=== PATIENT | female | born 1990 | race Two or more races ===

== ENCOUNTER 2025-03-07 14:15 | Emergency (ER) | payer OTHER ==
[~2025-03-07] VITALS: Ht 162.6 cm; Wt 70.8 kg
[2025-03-07 14:34] VITALS: BP 125/79
[2025-03-07 15:14] LABS: PLATELET COUNT (AUTO) 328 K/uL (179-408); RED BLOOD CELL COUNT(AUTO) 4.05 MIL/uL (3.63-4.92); RED CELL DISTRIBUTION WIDTH 18.7 % (12.3-17.7); WHITE BLOOD COUNT (AUTO) 7.5 K/uL (3.8-11.8)
[2025-03-07] MEDS ORDERED: LORAZEPAM 1 MG TABLET ONE (15:17)
[2025-03-07] MEDS: LORAZEPAM 0.5 MG TABLET PO ONE (15:19)
[2025-03-07 15:22] LABS: CREATININE 0.7 mg/dL (0.6-1.3); SODIUM SERUM 138.0 mmol/L (136-145); UREA NITROGEN, BLOOD 8.0 mg/dL (7-18)
[2025-03-07 15:28] LABS: ASPARTATE AMINOTRANSFERASE 24.0 U/L (15-37); TOTAL PROTEIN, SERUM 7.3 g/dL (6.4-8.2)
[2025-03-07] MEDS ORDERED: LORA-259 PO (16:53)
[2025-03-07 17:24] VITALS: BP 122/77; TEMP 98; O2SAT 99
== END 2025-03-07 17:25 | disposition home or self-care (01) ==
LOC: ER 14:15
DX: F10.239 Alcohol dependence with withdrawal, unspecified (principal); Z79.899 Other long term (current) drug therapy; Y90.9 Presence of alcohol in blood, level not specified
CPT/HCPCS: 36415; 83735; 85025; A4606; A4663